=== PATIENT | male | born 1960 | race Caucasian/White ===

== ENCOUNTER 2023-11-26 13:58 | Emergency (ER) | payer MEDICARE ==
[~2023-11-26] VITALS: Ht 177.8 cm; Wt 70.7 kg
[~2023-11-26 13:58] MED LIST: ARICEPT10 MG PO; CYANOCOBAL1000 MCG/M IM; MASON NATURAL1200 MG PO; NAMENDA 10MG TA10 MG PO; NORCO 325 MG-51 TAB PO; TIROSINT50 MC1 PO
[2023-11-26 14:00] VITALS: TEMP 97.5
[2023-11-26] MEDS ORDERED: LR 1,000 ML IV ONE (14:30)
[2023-11-26 15:24] LABS: BASO % 0.2 % (0.0-2.0); EOS % 0.5 % (0.0-4.0); GRAN # 3.9 K/mm3 (1.4-6.5); GRAN % 70.3 % (42.2-75.2); HEMOGLOBIN 11.4 g/dl (13.5-18.0); LYMPH # 1.2 K/mm3 (1.2-3.4); LYMPH % 21.4 % (20.0-51.0); MEAN CELL VOLUME 88 fl (80.0-100.0); MEAN CORPUSCULAR HEMOGLOBIN 29 pg (27-31); MEAN CORPUSCULAR HGB CONC 33 g/dl (33.0-37.0); MEAN PLATELET VOLUME 9.8 fl (7.4-10.4); MONO # 0.4 K/mm3 (0.1-0.6); MONO % 7.4 % (1.7-9.3); PLATELET COUNT 157 K/mm3 (130-400); RED BLOOD COUNT 3.93 M/mm3 (4.20-5.60); REDCELL DISTRIBUTION WIDTH-CV 13.4 % (11.5-14.5)
[2023-11-26 15:25] LABS: HEMATOCRIT 34.5 % (42.0-52.0)
[2023-11-26 16:07] LABS: ALBUMIN 3.7 g/dL (3.4-4.8); BILIRUBIN,TOTAL 0.5 mg/dL (0.2-1.2); CALCIUM 8.8 mg/dL (8.4-10.2); CREATININE, serum 0.83 mg/dL (0.72-1.25); POTASSIUM 3.6 mEq/L (3.5-4.5); TOTAL PROTEIN 6.1 g/dl (6.2-8.1)
[2023-11-26] MEDS ORDERED: Home HYDROcodone/Acetaminophen 7.5/325 MG #4 TABS/PACK PO ONE (16:30)
[2023-11-26 17:05] LABS: URINE APPEARANCE CLEAR (CLEAR/HAZY); URINE BLOOD NEGATIVE (NEGATIVE); URINE COLOR YELLOW (YELLOW); URINE GLUCOSE NEGATIVE (NEGATIVE); URINE KETONE NEGATIVE (NEGATIVE); URINE NITRATE NEGATIVE (NEGATIVE); URINE PROTEIN(semi-quant) NEGATIVE (NEGATIVE)
[2023-11-26 17:21] LABS: COLLECTION METHOD CLEAN CATCH
[2023-11-26 18:15] VITALS: BP 92/61; PULSE 56
== END 2023-11-26 18:25 | disposition home or self-care (01) ==
LOC: COL.ER 13:58 → EDBD 13:59 → COL.ER 13:59
PROVIDERS: Emergency Medicine
DX: S09.90XA Unspecified injury of head, initial encounter (principal); W18.30XA Fall on same level, unspecified, initial encounter; Y92.121 Bathroom in nursing home as the place of occurrence of the external cause
CPT/HCPCS: J7120